=== PATIENT | male | born 1985 | race Caucasian/White ===

== ENCOUNTER 2019-03-02 08:56 | Emergency (ER) | payer OTHER ==
--- NOTE | 2019-03-02 09:25 | EDM.PDOC ---
ED HPI GENERAL MEDICAL PROBLEM - General Chief Complaint: ENT Problem Stated Complaint: SORE THROAT Time Seen by Provider: 03/02/19 09:23 Source of Information: Reports: Patient - History of Present Illness INITIAL COMMENTS - FREE TEXT/NARRATIVE: HISTORY AND PHYSICAL: History of present illness: Sore throat increasing in severity over the last week some difficulty with solid food no difficulty with liquid no drooling trismus or muffled voice Review of systems: As per history of present illness and below otherwise all systems reviewed and negative. Past medical history: As per history of present illness and as reviewed below otherwise noncontributory. Surgical history: As per history of present illness and as reviewed below otherwise noncontributory. Social history: No reported history of drug or alcohol abuse. Family history: As per history of present illness and as reviewed below otherwise noncontributory. Physical exam: HEENT: Atraumatic, normocephalic, pupils reactive, negative for conjunctival pallor or scleral icterus, mucous membranes moist, throat clear, neck supple, nontender, trachea midline. Moderate erythema no exudates and panic membranes mildly injected no mastoid tenderness no meningeal signs Lungs: Clear to auscultation, breath sounds equal bilaterally, chest nontender. Heart: S1S2, regular, negative for clicks, rubs, or JVD. Abdomen: Soft, nondistended, nontender. Negative for masses or hepatosplenomegaly. Negative for costovertebral tenderness. Pelvis: Stable nontender. Genitourinary: Deferred. Rectal: Deferred. Extremities: Atraumatic, negative for cords or calf pain. Neurovascular unremarkable. Neuro: Awake, alert, oriented. Cranial nerves II through XII unremarkable. Cerebellum unremarkable. Motor and sensory unremarkable throughout. Exam nonfocal. Diagnostics: [Frances ] Therapeutics: [Amoxicillin ] Impression: [Pharyngitis ] Definitive disposition and diagnosis as appropriate pending reevaluation and review of above. Throat Pain Score (Numeric/FACES): 4 - Related Data Allergies Allergy/AdvReac Type Severity Reaction Status Date / Time No Known Allergies Allergy Verified 03/02/19 09:19 Home Meds: Home Meds . [No Known Home Meds] 03/02/19 [History] Past Medical History - Past Health History Medical/Surgical History: Denies Medical/Surgical History HEENT History: Reports: None Cardiovascular History: Reports: None Respiratory History: Reports: None Gastrointestinal History: Reports: None Genitourinary History: Reports: None Musculoskeletal History: Reports: None Neurological History: Reports: None Psychiatric History: Reports: None Endocrine/Metabolic History: Reports: None Hematologic History: Reports: None Immunologic History: Reports: None Oncologic (Cancer) History: Reports: None Dermatologic History: Reports: None - Infectious Disease History Infectious Disease History: Reports: None - Past Surgical History Head Surgeries/Procedures: Reports: None Social & Family History - Tobacco Use Smoking Status *Q: Never Smoker Second Hand Smoke Exposure: No - Caffeine Use Caffeine Use: Reports: None - Recreational Drug Use Recreational Drug Use: No ED ROS GENERAL - Review of Systems Review Of Systems: See Below ED EXAM, GENERAL - Physical Exam Exam: See Below Course - Vital Signs Last Recorded V/S: Last Vital Signs Temp 96.1 F 03/02/19 09:16 Pulse 94 03/02/19 09:16 Resp 18 03/02/19 09:16 BP 117/84 03/02/19 09:16 Pulse Ox 94 L 03/02/19 09:16 Departure - Departure Time of Disposition: 09:24 Disposition: Home, Self-Care 01 Condition: Good Clinical Impression: Pharyngitis - Discharge Information Referrals: PCP,Unknown [Primary Care Provider] - Additional Instructions: The following information is given to patients seen in the emergency department who are being discharged to home. This information is to outline your options for follow-up care. We provide all patients seen in our emergency department with a follow-up referral. The need for follow-up, as well as the timing and circumstances, are variable depending upon the specifics of your emergency department visit. If you don't have a primary care physician on staff, we will provide you with a referral. We always advise you to contact your personal physician following an emergency department visit to inform them of the circumstance of the visit and for follow-up with them and/or the need for any referrals to a consulting specialist. The emergency department will also refer you to a specialist when appropriate. This referral assures that you have the opportunity for follow-up care with a specialist. All of these measure are taken in an effort to provide you with optimal care, which includes your follow-up. Under all circumstances we always encourage you to contact your private physician who remains a resource for coordinating your care. When calling for follow-up care, please make the office aware that this follow-up is from your recent emergency room visit. If for any reason you are refused follow-up, please contact the emergency department at and asked to speak to the emergency department charge nurse.
== END 2019-03-02 09:31 | disposition home or self-care (01) ==
LOC: MW.ED 08:56
DX: J02.9 Acute pharyngitis, unspecified (principal)
CPT/HCPCS: 99282; 99283

== ENCOUNTER 2019-12-01 12:30 | Emergency (ER) | payer OTHER ==
--- NOTE | 2019-12-01 13:12 | EDM.PDOC ---
ED HPI GENERAL MEDICAL PROBLEM - General Chief Complaint: Lower Extremity Injury/Pain Stated Complaint: INFECTED L BIG TOE Time Seen by Provider: 12/01/19 13:07 Source of Information: Reports: Patient History Limitations: Reports: No Limitations - History of Present Illness INITIAL COMMENTS - FREE TEXT/NARRATIVE: HISTORY AND PHYSICAL: History of present illness: Patient is a 34-year-old male presents to the ED with concern of toe infection. Patient states he had an ingrown toenail removed [address] Linder. He states this morning he noticed some redness and swelling just below the toenail that was wasn't there before. He states there was some yellow drainage initially after having the toenail removed. He denies fevers, chills, nausea, vomiting. He states he had history of a MRSA infection to his finger years ago. Review of systems: As per history of present illness and below otherwise all systems reviewed and negative. Past medical history: As per history of present illness and as reviewed below otherwise noncontributory. Surgical history: As per history of present illness and as reviewed below otherwise noncontributory. Social history: No reported history of drug or alcohol abuse. Family history: As per history of present illness and as reviewed below otherwise noncontributory. Physical exam: General: Patient sitting comfortably in no acute distress and nontoxic appearing HEENT: Atraumatic, normocephalic, pupils reactive, negative for conjunctival pallor or scleral icterus, mucous membranes moist, throat clear, neck supple, nontender, trachea midline. No meningeal signs. Lungs: Clear to auscultation, breath sounds equal bilaterally, chest nontender. Heart: S1S2, regular, negative for clicks, rubs, or overt murmur. Abdomen: Soft, nondistended, nontender. Negative for masses or hepatosplenomegaly. Negative for costovertebral tenderness. No rigidity, rebound , guarding. Pelvis: Stable nontender. Genitourinary: Deferred. Rectal: Deferred. Extremities: Partial toenail removed from the left great toe. There is normal granulation tissue without evidence of purulent drainage. Mild local erythema without warmth and no tenderness to palpation. Atraumatic, negative for cords or calf pain. Neurovascular unremarkable. Neuro: Awake, alert, oriented. Cranial nerves II through XII unremarkable. Cerebellum unremarkable. Motor and sensory unremarkable throughout. Exam nonfocal. Notes: Diagnostics: Wound culture Therapeutics: none Prescriptions: Bactrim Impression: Great toe infection Plan: Take antibiotic as instructed Follow up with primary care provider Return to ED as needed as discussed Definitive disposition and diagnosis as appropriate pending reevaluation and review of above. left big toe Pain Score (Numeric/FACES): 3 - Related Data Allergies Allergy/AdvReac Type Severity Reaction Status Date / Time No Known Allergies Allergy Verified 03/02/19 09:19 Home Meds: Home Meds Sulfamethoxazole/Trimethoprim [Bactrim Ds Tablet] 1 each PO BID 7 Days #14 tablet 12/01/19 [Rx] Past Medical History - Past Health History Medical/Surgical History: Denies Medical/Surgical History HEENT History: Reports: None Cardiovascular History: Reports: None Respiratory History: Reports: None Gastrointestinal History: Reports: None Genitourinary History: Reports: None Musculoskeletal History: Reports: None Other Musculoskeletal History: fingernail removal Neurological History: Reports: None Psychiatric History: Reports: None Endocrine/Metabolic History: Reports: None Hematologic History: Reports: None Immunologic History: Reports: None Oncologic (Cancer) History: Reports: None Dermatologic History: Reports: None - Infectious Disease History Infectious Disease History: Reports: Chicken Pox, MRSA - Past Surgical History Head Surgeries/Procedures: Reports: None Social & Family History - Family History Family Medical History: Noncontributory - Tobacco Use Smoking Status *Q: Never Smoker - Caffeine Use Caffeine Use: Reports: None - Recreational Drug Use Recreational Drug Use: No Review of Systems - Review of Systems Review Of Systems: Comprehensive ROS is negative, except as noted in HPI. ED EXAM, GENERAL - Physical Exam Exam: See Below (see dictation) Course - Vital Signs Last Recorded V/S: Last Vital Signs Temp 98 F 12/01/19 12:38 Pulse 81 12/01/19 12:38 Resp 20 12/01/19 12:38 BP 125/71 12/01/19 12:38 Pulse Ox 96 12/01/19 12:38 Departure - Departure Time of Disposition: 13:12 Disposition: Home, Self-Care 01 Condition: Good Clinical Impression: Cellulitis of great toe - Discharge Information Referrals: Tim Linder MD [Primary Care Provider] - Additional Instructions: The following information is given to patients seen in the emergency department who are being discharged to home. This information is to outline your options for follow-up care. We provide all patients seen in our emergency department with a follow-up referral. The need for follow-up, as well as the timing and circumstances, are variable depending upon the specifics of your emergency department visit. If you don't have a primary care physician on staff, we will provide you with a referral. We always advise you to contact your personal physician following an emergency department visit to inform them of the circumstance of the visit and for follow-up with them and/or the need for any referrals to a consulting specialist. The emergency department will also refer you to a specialist when appropriate. This referral assures that you have the opportunity for follow-up care with a specialist. All of these measure are taken in an effort to provide you with optimal care, which includes your follow-up. Under all circumstances we always encourage you to contact your private physician who remains a resource for coordinating your care. When calling for follow-up care, please make the office aware that this follow-up is from your recent emergency room visit. If for any reason you are refused follow-up, please contact the [facility] Emergency Department at and asked to speak to the emergency department charge nurse. [facility] [address] [place] [id number] [id number] Take antibiotic as instructed Follow up with primary care provider Return to ED as needed as discussed Sepsis Event Note - Evaluation Sepsis Screening Result: No Definite Risk - Focused Exam Vital Signs: Vital Signs Temp Pulse Resp BP Pulse Ox 12/01/19 12:38 98 F 81 20 125/71 96 Date Exam was Performed: 12/01/19 Time Exam was Performed: 13:07
== END 2019-12-01 13:22 | disposition home or self-care (01) ==
LOC: EEVIPCON 12:30 → MW.ED 12:30
DX: L03.032 Cellulitis of left toe (principal)
CPT/HCPCS: 87070; 87077; 87186; 99283